=== PATIENT | male | born 1985 | race African-American/Black ===

== ENCOUNTER 2019-08-23 12:32 | Emergency (ER) | payer OTHER ==
--- NOTE | 2019-08-23 12:54 | ER ---
Nurse's Notes [facility] Name: Jimenez Driver Age: 34 yrs Sex: Male : 1985 Arrival Date: 08/23/2019 Time: 12:37 Bed 6 Private MD: Diagnosis: Sciatica, right side Presentation: 08/22 12:47 Chief complaint: Patient states: Low back pain for 7-10 days. Lifts heavy objects at 1 work, but doesn't remember a specific trauma or injury. Pain radiates down right leg at times. No cough/fever. Coronavirus screen: Proceed with normal triage. Patient denies a cough. Patient denies shortness of breath or difficulty breathing. Patient denies measured and/or subjective temperature greater than 100.4F prior to today's visit. Patient denies travel on a cruise ship or to a country the [facility]NOTE 3] currently lists as an affected area. Patient denies contact with known and/or suspected case of COVID-19. Ebola Screen: Patient denies travel to an Ebola-affected area in the 21 days before illness onset. Initial Sepsis Screen: Does the patient meet any 2 criteria? No. Patient's initial sepsis screen is negative. Does the patient have a suspected source of infection? No. Patient's initial sepsis screen is negative. Risk Assessment: Do you want to hurt yourself or someone else? Patient reports no desire to harm self or others. Onset of symptoms was August 13, 2019. 12:47 Method Of Arrival: Ambulatory ll1 12:47 Acuity: GALI 4 ll1 Historical: - Allergies: 12:49 No Known Allergies; ll1 - PMHx: 12:49 seasonal allergies; ll1 - PSHx: 12:49 None; ll1 - Immunization history:: Flu vaccine is not up to date. - Social history:: Patient uses alcohol, only on a social basis. Patient/guardian denies using street drugs, tobacco products, Smoking status: Patient denies any tobacco usage or history of. Screenin:05 Abuse screen: Denies threats or abuse. Nutritional screening: No deficits noted. ll1 Tuberculosis screening: No symptoms or risk factors identified. Fall Risk None identified. No fall in past 12 months (0 pts). Total [place] Fall Scale indicates No Risk (0-24 pts). Assessment: 13:03 General: Appears in no apparent distress. Behavior is calm, cooperative, appropriate ll1 for age. Pain: Complains of pain in right low back Pain radiates to right leg Pain currently is 8 out of 10 on a pain scale. Pain began 7-10 days Is intermittent, Alleviated by rest. Neuro: No deficits noted. Level of Consciousness is awake, alert, obeys commands, Oriented to person, place, time, situation, Textile Conservator are equal bilaterally Moves all extremities. Full function Gait is steady, Speech is normal, Facial symmetry appears normal, Reports low back pain that radiates into right leg. Cardiovascular: No deficits noted. Respiratory: No deficits noted. GI: No deficits noted. Musculoskeletal: Circulation, motion, and sensation intact. Capillary refill < 3 seconds, Range of motion: intact in all extremities, Reports pain in right leg and right low back Denies weakness in right leg numbness in, right leg. Injury Description: no specific injury remembered. Vital Signs: 12:47 BP 133 / 72; Pulse 58; Resp 17; Temp 98.1; Pulse Ox 100% ; Pain 8/10; ll1 ED Course: 12:37 Patient arrived in ED. mr 12:39 [facility]iley [facility] kb 12:39 Erika Mendoza MD is Attending Physician. kb 12:49 Triage completed. ll1 12:49 Arm band placed on Patient placed in an exam room, on a stretcher. ll1 13:06 Patient has correct armband on for positive identification. Bed in low position. Call ll1 light in reach. Side rails up X 1. 13:06 No provider procedures requiring assistance completed. Patient did not have IV access ll1 during this emergency room visit. Administered Medications: 13:06 Not Given (Patient Refused): TORadol 30 mg IM once ll1 Outcome: 12:53 Discharge ordered by . kb 13:06 Discharged to home ambulatory. ll1 13:06 Condition: stable 13:06 Discharge instructions given to patient, Instructed on discharge instructions, follow up and referral plans. medication usage, Demonstrated understanding of instructions, follow-up care, medications, Prescriptions given X 2. 13:07 Patient left the ED. ll1 Signatures: Smiley Saha FNP-C FNP-Korina Cordova Geneva Garduno RN RN ll1
--- NOTE | 2019-08-23 12:55 | EDPHYS ---
Physician Documentation [facility] Name: Jimenez Driver Age: 34 yrs Sex: Male : 1985 Arrival Date: 08/23/2019 Time: 12:37 Bed 6 Private MD: ED Physician Erika Mendoza HPI: 08/22 12:52 This 34 yrs old Black Male presents to ER via Ambulatory with complaints of Back Pain. kb 12:52 The patient presents with pain that is acute, with no known mechanism of injury. The kb symptoms are located in the right low back. Onset: The symptoms/episode began/occurred 1 week(s) ago. The pain radiates to the right leg. Associated signs and symptoms: The patient has no apparent associated signs or symptoms. The problem was sustained when lifting. Modifying factors: The patient symptoms are alleviated by nothing, the patient symptoms are aggravated by any movement. Severity of symptoms: At their worst the symptoms were moderate, in the emergency department the symptoms are unchanged. The patient has not experienced similar symptoms in the past. The patient has not recently seen a physician. Pt c/o right low back/buttock pain that radiates down right leg. Historical: - Allergies: 12:49 No Known Allergies; ll1 - PMHx: 12:49 seasonal allergies; ll1 - PSHx: 12:49 None; ll1 - Immunization history:: Flu vaccine is not up to date. - Social history:: Patient uses alcohol, only on a social basis. Patient/guardian denies using street drugs, tobacco products, Smoking status: Patient denies any tobacco usage or history of. ROS: 12:51 Constitutional: Negative for fever, chills, and weight loss, ENT: Negative for injury, kb pain, and discharge, Neck: Negative for injury, pain, and swelling, Cardiovascular: Negative for chest pain, palpitations, and edema, Respiratory: Negative for shortness of breath, cough, wheezing, and pleuritic chest pain, Abdomen/GI: Negative for abdominal pain, nausea, vomiting, diarrhea, and constipation, : Negative for injury, bleeding, discharge, and swelling, MS/Extremity: Negative for injury and deformity, Skin: Negative for injury, rash, and discoloration, Neuro: Negative for headache, weakness, numbness, tingling, and seizure. 12:51 Back: Positive for pain at rest, pain with movement, radiated pain, of the right low back. Exam: 12:51 Constitutional: This is a well developed, well nourished patient who is awake, alert, kb and in no acute distress. Head/Face: Normocephalic, atraumatic. Chest/axilla: Normal chest wall appearance and motion. Nontender with no deformity. No lesions are appreciated. Cardiovascular: Regular rate and rhythm with a normal S1 and S2. No gallops, murmurs, or rubs. Normal PMI, no JVD. No pulse deficits. Respiratory: Lungs have equal breath sounds bilaterally, clear to auscultation and percussion. No rales, rhonchi or wheezes noted. No increased work of breathing, no retractions or nasal flaring. Abdomen/GI: Soft, non-tender, with normal bowel sounds. No distension or tympany. No guarding or rebound. No evidence of tenderness throughout. Skin: Warm, dry with normal turgor. Normal color with no rashes, no lesions, and no evidence of cellulitis. MS/ Extremity: Pulses equal, no cyanosis. Neurovascular intact. Full, normal range of motion. Neuro: Awake and alert, GCS 15, oriented to person, place, time, and situation. Cranial nerves II-XII grossly intact. Motor strength 5/5 in all extremities. Sensory grossly intact. Cerebellar exam normal. Normal gait. 12:51 Back: pain, that is moderate, of the right low back, ROM is painful, normal spinal alignment noted. Vital Signs: 12:47 BP 133 / 72; Pulse 58; Resp 17; Temp 98.1; Pulse Ox 100% ; Pain 8/10; ll1 MDM: 12:46 Patient medically screened. kb 12:50 Data reviewed: vital signs, nurses notes. Data interpreted: Pulse oximetry: on room air kb is 100 %. Interpretation: normal. 12:52 Counseling: I had a detailed discussion with the patient and/or guardian regarding: the kb historical points, exam findings, and any diagnostic results supporting the discharge/admit diagnosis, the need for outpatient follow up, a family practitioner, to return to the emergency department if symptoms worsen or persist or if there are any questions or concerns that arise at home. Administered Medications: 13:06 Not Given (Patient Refused): TORadol 30 mg IM once ll1 Disposition: 17:24 Co-signature as Attending Physician, Erika Mendoza MD. ma2 Disposition: 08/23/19 12:53 Discharged to Home. Impression: Sciatica, right side. - Condition is Stable. - Discharge Instructions: Sciatica, [id number], Back Exercises, [id number]. - Prescriptions for Cyclobenzaprine 10 mg Oral Tablet - take 1 tablet by ORAL route every 8 hours As needed; 21 tablet. Diclofenac Sodium 75 mg Oral Tablet, Delayed Release (E.C.) - take 1 tablet by ORAL route 2 times per day As needed; 30 tablet. - Medication Reconciliation Form, Thank You Letter, Antibiotic Education, Prescription Opioid Use, Work release form form. - Follow up: Emergency Department; When: As needed; Reason: Worsening of condition. Follow up: Private Physician; When: 2 - 3 days; Reason: Recheck today's complaints, Continuance of care, Re-evaluation by your physician. Signatures: Smiley Saha, POSTDOCTORAL SCHOLAR-C POSTDOCTORAL SCHOLAR-CkErika Delgado MD MD ma2 Geneva Garduno RN RN ll1 Corrections: (The following items were deleted from the chart) 12:52 12:51 Back: Positive for pain at rest, pain with movement, of the right low back, kb 13:07 12:53 08/23/2019 12:53 Discharged to Home. Impression: Sciatica, right side. Condition ll1 is Stable. Forms are Medication Reconciliation Form, Thank You Letter, Antibiotic Education, Prescription Opioid Use. Follow up: Emergency Department; When: As needed; Reason: Worsening of condition. Follow up: Private Physician; When: 2 - 3 days; Reason: Recheck today's complaints, Continuance of care, Re-evaluation by your physician. kb
[2019-08-23] MEDS ORDERED: KETOROLAC 30 MG/ML INJ ONE (12:59)
[2019-08-23 13:13] VITALS: BP 133/72; TEMP 98.1; O2SAT 100
== END 2019-08-23 13:07 | disposition home or self-care (01) ==
LOC: ER 12:32
DX: M54.31 Sciatica, right side (principal)
CPT/HCPCS: 99282